=== PATIENT | male | born 1990 | race Two or more races ===

== ENCOUNTER 2020-02-22 15:25 | Observation (INO) ==
[2020-02-22 15:37] VITALS: BMI 24.8
[2020-02-22 18:18] LABS: BILIRUBIN,URINE NEGATIVE (NEGATIVE); BLOOD/HEMOGLOBIN,URINE NEGATIVE (NEGATIVE); GLUCOSE, URINE NEGATIVE (NEGATIVE); KETONES,URINE NEGATIVE (NEGATIVE); LEUKOCYTE ESTERASE ,URINE NEGATIVE (NEGATIVE); NITRITES,URINE NEGATIVE (NEGATIVE); PROTEIN,URINE 1+ (NEGATIVE); UROBILINOGEN,URINE NORMAL (NORMAL)
[2020-02-22 18:28] LABS: APPEARANCE,URINE SLIGHTLY HAZY (CLEAR); COLOR,URINE YELLOW (YELLOW)
[2020-02-22 18:29] LABS: BACTERIA,URINE NEGATIVE /HPF (NEGATIVE); RBC,URINE NONE SEEN /HPF (0-3); SQUAMOUS EPITHELIAL CELL,UR RARE /HPF (NEGATIVE)
--- NOTE | 2020-02-22 18:53 | DR.ABDMALE ---
HPI Time seen Time Seen by Provider: 02/22/20 18:51 PCP Primary Care Physician: JACKIE HPI comment HPI Comment: PATIENT IS 30YR OLD MALE IN ER WITH LLQ ABDOMINAL PAIN RADIATING TO LEFT GROIN AREA. OBVIOUS LEFT INGUINAL HERNIA THAT IS NOT REDUCING PRESENT. PAIN IS 7/10. NO FEVER OR DYSURIA. PAIN INCREASES WITH MOVEMENT AND IMPROVES LYING STILL. DENIES CONSTIPATION OR DIARRHEA. 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 Complaint Chief Complaint Doctors Comments: LLQ ABDOMINAL PAIN SINCE LAST NIGHT. Chief Complaint:: PT C/O LLQ PAIN. PT STATES HE HAS BEEN HAVING THE PAIN SINCE LAST NIGHT. COVID-19 Coronavirus risk:travel/contact w/high risk person: No Has patient experienced Coronavirus symptoms: No Reviewed Nurses Notes Review: Yes Mode of arrival Mode of Arrival: Ambulatory Timing Onset of Chief Complaint: 02/21/20 Came on: Suddenly Duration Duration: Constant Duration: Hours Location Location: LLQ Severity Severity: Moderate Quality Quality: Sharp Context Onset: Suddenly History of: None Modifying factors Worsening Factors: Exertion Improving Factors: Lying Still Associated signs and symptoms Associated Signs and Symptoms: Nausea PMH PMH Past Medical History: No Past Surgical History: Yes Surgical History: Appendectomy Family History History of Family Medical Conditions: No Social History Does any household member use tobacco: No Alcohol Use: Occasionally Do you use any recreational Drugs:: No Lives With: Friend Lives Where: Home Travel Risk Coronavirus risk:travel/contact w/high risk person: No Has patient experienced Coronavirus symptoms: No Infectious screening In the last 2 months have you had wt loss of >10#?: NO Have you had fever, night sweats or hemotysis?: No Have you traveled outside the country in the last 6 months?: No Isolation: Standard ROS Review of Systems Constitutional: No Symptoms Reported and See HPI; negative Fever, Weakness and Fatigue Eyes: No Symptoms Reported and See HPI; negative Blurred Vision and Diplopia ENTM: No Symptoms Reported and See HPI; negative Ear Pain, Nose Discharge, Nose Congestion and Throat Pain Respiratoy: No Symptoms Reported and See HPI; negative Moist Cough, Short of Breath and Wheezing Cardiovascular: No Symptoms Reported and See HPI; negative Chest Pain, Edema and Palpitations Gastrointestinal/Abdominal: See HPI, Abdominal Pain and Nausea; negative Constipation, Diarrhea and Vomiting Genitourinary: See HPI and Pain (LEFT GROIN PAIN.); negative Dysuria, Frequency and Hematuria Neurological: No Symptoms Reported and See HPI; negative Headache, Weakness and Dizziness Musculoskeletal: No Symptoms Reported and See HPI; negative Back Pain Integumentary: No Symptoms Reported and See HPI; negative Change in Color, Rash and Juandice Hematologic/Lymphatic: No Symptoms Reported and See HPI; negative Easy Bruising and Swollen Glands Endocrine: No Symptoms Reported and See HPI; negative Increased Thirst, Increased Urine and Decreased Appetite Psychiatric: No Symptoms Reported and See HPI All Other Systems: Reviewed and Negative PE Vital Signs Vital Signs: Temp Pulse Pulse Resp BP BP Pulse Ox 02/22/20 19:48 18 02/22/20 19:33 97.8 F 78 18 128/76 99 02/22/20 19:18 18 02/22/20 15:34 97.3 F L 80 20 136/89 99 General Limitations: No Limitations General Appearance: Alert and In No Apparent Distress Head Head Exam: Normal Inspection Eyes Eye exam: Normal Appearance and PERRL; negative Scleral Icterus and Conjunctival Injection ENT ENT Exam: Normal Exam, Normal Oropharynx, Normal External Ear Exam and TM's Normal Bilaterally Neck Neck Exam: Normal Inspection and Trachea Midline; negative Tenderness and Lymphadenopathy Chest Chest Inspection: Normal Inspection and Symmetric Chest Wall Rise; negative Tenderness Respiratory Respiratory Exam: Normal Lung Sounds Bilat; negative Accessory Muscle Use, Chest Wall Tenderness and Respiratory Distress Respiratory Exam: Bilateral: Clear to Auscultation Cardiovascular Cardiovascular Exam: Regular Rate, Normal Rhythm and Normal Heart Sounds; negat arlette Systolic Murmur and Diastolic Murmur Abdominal Exam Abdominal Exam: Normal Inspection, Normal Bowel Sounds, Soft, Tenderness and Hernia (LEFT INGUINAL HERNIA THAT IS NOT REDUCING.) Abdominal Tenderness: LLQ and Moderate Rectal Rectal Exam: Deferred Back Back Exam: Normal Inspection; negative (R) CVA Tenderness and (L) CVA Tenderness Extremeties Extremities Exam: Normal Inspection Exam: Male: Deferred Neurologic Neurological Exam: Alert, Oriented X3 and CN II-XII Intact; negative Motor Sensory Deficit Psychiatric Psychiatric Exam: Normal Affect and Normal Mood Skin Skin Exam: Warm, Dry, Intact and Normal Color MDM Differential Diagnosis Differential Diagnosis: Bowel Obstruction, Hernia (INCARCERATED LEFT INGUINAL HERNIA.), Urinary tract infection and Urolithiasis COURSE Treatment Treatment: SEE ORDERS. Consultation Consultation Comments: DISCUSSED PATIENT WITH DR. DIETRICH, IN ER SEING PATIENT. WILL ADMIT PATIENT. Education/Counseling Education/Counseling: Patient Educated On: Diagnosis ROR Labs Reviewed Laboratory Results Reviewed?: Yes Result Diagrams: 02/23/20 05:40 02/23/20 05:40 Laboratory: WBC 10.6 X10^3/uL (3.6-10.0) H 02/22/20 19:24 RBC 4.62 X10^6/uL (4.7-6.0) L 02/22/20 19:24 Hgb 13.9 g/dL (13.5-18.0) 02/22/20 19:24 Hct 40.3 % (42.0-54.0) L 02/22/20 19:24 MCV 87.1 fL (80.0-100.0) 02/22/20 19: MCH 30.1 pg (27.0-34.0) 02/22/20 19: MCHC 34.5 g/dL (33.0-35.0) 02/22/20: RDW 13.3 % (11.6-16.5) 02/22/20 19: Plt Count 284 X10^3/uL (150.0-450.0) 02/22/20 19:24 MPV 7.7 fL (7.4-11.0) 02/22/20 19:24 Neut % (Auto) 49.8 % (42.0-75.0) 02/22/20 19: Lymph % (Auto) 37.6 % (21.0-51.0) 02/22/20: [place] % (Auto) 9.1 % (0.0-13.0) 02/22/20 19: Eos % (Auto) 1.3 % (0.9-2.9) 02/22/20 19:24 Baso % (Auto) 2.2 % (0.2-1.0) H 02/22/20 19:24 Neut # (Auto) 5.3 x10^3/uL (2.2-4.8) H 02/22/20 19:24 Lymph # (Auto) 4.0 X10^3/uL (1.3-2.9) H 02/22/20 19:24 [place] # (Auto) 1.0 x10^3/uL (0.3-0.8) H 02/22/20 19:24 Eos # (Auto) 0.1 x10^3/uL (0.0-0.2) 02/22/20 19:24 Baso # (Auto) 0.2 X10^3/uL (0.0-0.1) H 02/22/20 19:24 Absolute Nucleated RBC 0.1 /100WBC 02/22/20 19:24 Sodium 139 mmol/L (136-145) 02/22/20 19:24 Corrected Sodium TNP 02/22/20 19:24 Potassium 3.6 mmol/L (3.5-5.1) 02/22/20 19:24 Chloride 103 mmol/L (98-107) 02/22/20 19:24 Carbon Dioxide 30.7 mmol/L (21-32) 02/22/20 19:24 BUN 16 mg/dL (7-18) 02/22/20 19:24 Creatinine 1.00 mg/dL (0.70-1.30) 02/22/20 19:24 Est GFR (MDRD) Af Amer > 60 (>60) 02/22/20 19:24 Est GFR (MDRD) Non-Af > 60 (>60) 02/22/20 19:24 Glucose 95 mg/dL (65-99) 02/22/20 19:24 Calcium 8.4 mg/dL (8.5-10.1) L 02/22/20 19:24 Corrected Calcium TNP 02/22/20 19:24 Total Bilirubin 0.60 mg/dL (0.2-1.0) 02/22/20 19:24 AST 24 Units/L (15-37) 02/22/20 19:24 ALT 29 Units/L (12-78) 02/22/20 19:24 Alkaline Phosphatase 51 Units/L (46-116) 02/22/20 19:24 Total Protein 7.4 g/dL (6.4-8.2) 02/22/20 19:24 Albumin 4.0 g/dL (3.4-5.0) 02/22/20 19:24 Globulin 3.4 g/dL (2.5-4.5) 02/22/20 19:24 Albumin/Globulin Ratio 1.2 Ratio (1.1-2.1) 02/22/20 19:24 Specimen Type Clean catch urine 02/22/20 18:12 Urine Color Yellow (YELLOW) 02/22/20 18:12 Urine Appearance Slightly hazy (CLEAR) 02/22/20 18:12 Urine pH 6.0 (5.0 - 8.0) 02/22/20 18:12 Ur Specific [place] 1.025 (1.000-1.030) 02/22/20 18:12 Urine Protein 1+ (NEGATIVE) 02/22/20 18:12 Urine Glucose (UA) Negative (NEGATIVE) 02/22/20 18:12 Urine Ketones Negative (NEGATIVE) 02/22/20 18:12 Urine Occult Blood Negative (NEGATIVE) 02/22/20 18:12 Urine Nitrite Negative (NEGATIVE) 02/22/20 18:12 Urine Bilirubin Negative (NEGATIVE) 02/22/20 18:12 Urine Urobilinogen Normal (NORMAL) 02/22/20 18:12 Ur Leukocyte Esterase Negative (NEGATIVE) 02/22/20 18:12 Urine RBC None seen /HPF (0-3) 02/22/20 18:12 Urine WBC 0-2 /HPF (0-5) 02/22/20 18:12 Ur Squamous Epith Cells Rare /HPF (NEGATIVE) 02/22/20 18:12 Urine Bacteria Negative /HPF (NEGATIVE) 02/22/20 18:12 Ur Culture Indicated? No/not indicated 02/22/20 18:12 Opioid Opioid Risk Tool Age (Pee box if 16-45): No History of Preadolescent Sexual Abuse: No Total: 0 Total Score Risk Category: Low Risk Copyright: Lev [place] predicting aberrant behaviors Diagnosis Discharge Problem: Incarcerated left inguinal hernia, Abdominal pain, LLQ Instructions Instructions: Hernia, Adult, [id number] Open Hernia Repair, Adult, Care After, [id number] Laparoscopic Inguinal Hernia Repair, Adult, Care After Forms: Excuse From Work or School Precautions for COVID19 Patient Portal Social Distancing
[2020-02-22] MEDS ORDERED: NS 1000 ML 1,000 ML ONE (18:59)
[2020-02-22] MEDS ORDERED: NS 1000 ML 1,000 ML IV ONE (19:07)
[2020-02-22] MEDS ORDERED: DILAUDID INJ ONE (19:16)
[2020-02-22] MEDS ORDERED: DILAUDID INJ IVP ONE (19:18)
[2020-02-22 19:31] LABS: BASOPHILS # (AUTO) 0.2 X10^3/uL (0.0-0.1); BASOPHILS % (AUTO) 2.2 % (0.2-1.0); EOSINOPHILS # (AUTO) 0.1 x10^3/uL (0.0-0.2); EOSINOPHILS % (AUTO) 1.3 % (0.9-2.9); HEMATOCRIT 40.3 % (42.0-54.0); HEMOGLOBIN 13.9 g/dL (13.5-18.0); LYMPHOCYTES % (AUTO) 37.6 % (21.0-51.0); MEAN CORPUSCULAR HEMOGLOBIN 30.1 pg (27.0-34.0); MEAN CORPUSCULAR HGB CONC 34.5 g/dL (33.0-35.0); MEAN CORPUSCULAR VOLUME 87.1 fL (80.0-100.0); MEAN PLATELET VOLUME 7.7 fL (7.4-11.0); MONOCYTES % (AUTO) 9.1 % (0.0-13.0); NEUTROPHILS # (AUTO) 5.3 x10^3/uL (2.2-4.8); NEUTROPHILS % (AUTO) 49.8 % (42.0-75.0); PLATELET COUNT 284 X10^3/uL (150.0-450.0); RED BLOOD COUNT 4.62 X10^6/uL (4.7-6.0); RED CELL DISTRIBUTION WIDTH 13.3 % (11.6-16.5); WHITE BLOOD COUNT 10.6 X10^3/uL (3.6-10.0)
[2020-02-22 19:41] LABS: ALANINE AMINOTRANSFERASE 29 Units/L (12-78); ALKALINE PHOSPHATASE 51 Units/L (46-116); ASPARTATE AMINO TRANSFERASE 24 Units/L (15-37); BLOOD UREA NITROGEN 16 mg/dL (7-18); CALCIUM 8.4 mg/dL (8.5-10.1); CARBON DIOXIDE 30.7 mmol/L (21-32); CHLORIDE 103 mmol/L (98-107); SODIUM 139 mmol/L (136-145); TOTAL PROTEIN 7.4 g/dL (6.4-8.2); eGFR NON BLACK RACES > 60 (>60)
--- NOTE | 2020-02-22 19:55 | RAD ---
HISTORYR/O SBO. LLQ ABD PAIN NO HX. SX APPENDIXChest and abdominal pain.EXAM: ACUTE ABDOMINAL SERIESComparison: None available.Findings:The trachea is midline. [The cardiac silhouette is unremarkable]. The lungs [are clear without focal infiltrate or effusion]. The bony thorax [is unremarkable].Flat plate and upright evaluation of the abdomen demonstrates [a nonspecific and nonobstructive bowel gas pattern]. [No free peritoneal air is seen]. [No pathological soft tissue abdominal mass effect or focal calcification can be observed]. The bony structures are grossly intact. There is a moderate amount of colonic stool.IMPRESSION:1. No acute cardiopulmonary disease.2. No evidence for acute abdominal pathology.3. Moderate amount of colonic stool.Electronically signed by: YOJANA PEPPER III (Feb 22, 2020 19:54:09)
[2020-02-22] MEDS ORDERED: ZOFRAN INJ 4 MG VIAL IVP PRN (20:37)
[2020-02-22] MEDS ORDERED: DILAUDID INJ IVP PRN (22:39)
[2020-02-22] MEDS: NS 1000 ML 1,000 ML IV SCH (23:22)
[2020-02-23] MEDS ORDERED: ZOFRAN INJ 4 MG VIAL IVP PRN ×2 (02:34→09:31)
[2020-02-23] MEDS ORDERED: ZOFRAN INJ 4 MG VIAL ONE ×2 (02:38→09:45)
[2020-02-23] MEDS: NS 1000 ML 1,000 ML IV SCH ×6 (06:14→22:32)
[2020-02-23 06:28] LABS: ALANINE AMINOTRANSFERASE 27 Units/L (12-78); ALBUMIN 3.7 g/dL (3.4-5.0); ALKALINE PHOSPHATASE 48 Units/L (46-116); ASPARTATE AMINO TRANSFERASE 23 Units/L (15-37); BLOOD UREA NITROGEN 19 mg/dL (7-18); CALCIUM 8.3 mg/dL (8.5-10.1); CARBON DIOXIDE 27.9 mmol/L (21-32); CHLORIDE 105 mmol/L (98-107); CREATININE 0.85 mg/dL (0.70-1.30); SODIUM 140 mmol/L (136-145); eGFR NON BLACK RACES > 60 (>60)
[2020-02-23 06:48] LABS: BASOPHILS # (AUTO) 0.1 X10^3/uL (0.0-0.1); BASOPHILS % (AUTO) 0.5 % (0.2-1.0); EOSINOPHILS # (AUTO) 0.1 x10^3/uL (0.0-0.2); EOSINOPHILS % (AUTO) 0.5 % (0.9-2.9); LYMPHOCYTES # (AUTO) 2.4 X10^3/uL (1.3-2.9); MEAN CORPUSCULAR HEMOGLOBIN 29.3 pg (27.0-34.0); MEAN CORPUSCULAR HGB CONC 33.4 g/dL (33.0-35.0); MEAN CORPUSCULAR VOLUME 87.6 fL (80.0-100.0); MEAN PLATELET VOLUME 8.3 fL (7.4-11.0); MONOCYTES # (AUTO) 0.7 x10^3/uL (0.3-0.8); MONOCYTES % (AUTO) 7.4 % (0.0-13.0); NEUTROPHILS # (AUTO) 6.7 x10^3/uL (2.2-4.8); NEUTROPHILS % (AUTO) 67.6 % (42.0-75.0); PLATELET COUNT 273 X10^3/uL (150.0-450.0); RED BLOOD COUNT 4.45 X10^6/uL (4.7-6.0); RED CELL DISTRIBUTION WIDTH 13.2 % (11.6-16.5); WHITE BLOOD COUNT 9.9 X10^3/uL (3.6-10.0)
[2020-02-23] MEDS ORDERED: DILAUDID INJ IVP STA (07:58)
--- NOTE | 2020-02-23 08:37 | DR.PROGNOT ---
Hospital Progress Notes - Progress Note for Day of: Progress Note Date: 02/23/20 - Chief Complaint Chief Complaint: still c/o pain Lt groin with incarcerated hernia. - Past Medical Family Social History Past Med/Fam/Surg Hx: No changes since H&P Allergies: Allergies No Known Drug Allergies Allergy (Verified 02/22/20 15:33) - Review Of Systems ROS: No change since H&P - Vital Signs Vital Signs: Temperature 97.7 F Pulse Rate [Left Brachial] 78 Pulse Rate 80 Respiratory Rate 18 Blood Pressure [Left Arm] 120/66 Blood Pressure 136/89 O2 Sat by Pulse Oximetry 97 - Physical Exam Oriented: Normal Eyes: Normal Ear: Normal Nose: Normal Throat: Normal Respiratory: Normal Cardiovascular: Normal : Normal GI:Auscultation: Normal GI:Palpation: Normal GI: Tenderness: LLQ (incarcerated Lt inguinal hernia .) Speech Pattern: Clear, Appropriate - Laboratory and Diagnostics Result Diagrams: 02/23/20 05:40 02/23/20 05:40 Labs: Laboratory WBC 9.9 X10^3/uL (3.6-10.0) 02/23/20 05:40 RBC 4.45 X10^6/uL (4.7-6.0) L 02/23/20 05:40 Hgb 13.0 g/dL (13.5-18.0) L 02/23/20 05:40 Hct 39.0 % (42.0-54.0) L 02/23/20 05:40 MCV 87.6 fL (80.0-100.0) 02/23/20 05:40 MCH 29.3 pg (27.0-34.0) 02/23/20 05:40 MCHC 33.4 g/dL (33.0-35.0) 02/23/20 05:40 RDW 13.2 % (11.6-16.5) 02/23/20 05:40 Plt Count 273 X10^3/uL (150.0-450.0) 02/23/20 05:40 MPV 8.3 fL (7.4-11.0) 02/23/20 05:40 Neut % (Auto) 67.6 % (42.0-75.0) 02/23/20 05:40 Lymph % (Auto) 24.0 % (21.0-51.0) 02/23/20 05:40 [place] % (Auto) 7.4 % (0.0-13.0) 02/23/20 05:40 Eos % (Auto) 0.5 % (0.9-2.9) L 02/23/20 05:40 Baso % (Auto) 0.5 % (0.2-1.0) 02/23/20 05:40 Neut # (Auto) 6.7 x10^3/uL (2.2-4.8) H 02/23/20 05:40 Lymph # (Auto) 2.4 X10^3/uL (1.3-2.9) 02/23/20 05:40 [place] # (Auto) 0.7 x10^3/uL (0.3-0.8) 02/23/20 05:40 Eos # (Auto) 0.1 x10^3/uL (0.0-0.2) 02/23/20 05:40 Baso # (Auto) 0.1 X10^3/uL (0.0-0.1) 02/23/20 05:40 Absolute Nucleated RBC 0.0 /100WBC 02/23/20 05:40 Sodium 140 mmol/L (136-145) 02/23/20 05:40 Corrected Sodium TNP 02/23/20 05:40 Potassium 4.3 mmol/L (3.5-5.1) 02/23/20 05:40 Chloride 105 mmol/L (98-107) 02/23/20 05:40 Carbon Dioxide 27.9 mmol/L (21-32) 02/23/20 05:40 BUN 19 mg/dL (7-18) H 02/23/20 05:40 Creatinine 0.85 mg/dL (0.70-1.30) 02/23/20 05:40 Est GFR (MDRD) Af Amer > 60 (>60) 02/23/20 05:40 Est GFR (MDRD) Non-Af > 60 (>60) 02/23/20 05:40 Glucose 102 mg/dL (65-99) H 02/23/20 05:40 Calcium 8.3 mg/dL (8.5-10.1) L 02/23/20 05:40 Corrected Calcium TNP 02/23/20 05:40 Total Bilirubin 0.50 mg/dL (0.2-1.0) 02/23/20 05:40 AST 23 Units/L (15-37) 02/23/20 05:40 ALT 27 Units/L (12-78) 02/23/20 05:40 Alkaline Phosphatase 48 Units/L (46-116) 02/23/20 05:40 Total Protein 7.0 g/dL (6.4-8.2) 02/23/20 05:40 Albumin 3.7 g/dL (3.4-5.0) 02/23/20 05:40 Globulin 3.3 g/dL (2.5-4.5) 02/23/20 05:40 Albumin/Globulin Ratio 1.1 Ratio (1.1-2.1) 02/23/20 05:40 Specimen Type Clean catch urine 02/22/20 18:12 Urine Color Yellow (YELLOW) 02/22/20 18:12 Urine Appearance Slightly hazy (CLEAR) 02/22/20 18:12 Urine pH 6.0 (5.0 - 8.0) 02/22/20 18:12 Ur Specific [place] 1.025 (1.000-1.030) 02/22/20 18:12 Urine Protein 1+ (NEGATIVE) 02/22/20 18:12 Urine Glucose (UA) Negative (NEGATIVE) 02/22/20 18:12 Urine Ketones Negative (NEGATIVE) 02/22/20 18:12 Urine Occult Blood Negative (NEGATIVE) 02/22/20 18:12 Urine Nitrite Negative (NEGATIVE) 02/22/20 18:12 Urine Bilirubin Negative (NEGATIVE) 02/22/20 18:12 Urine Urobilinogen Normal (NORMAL) 02/22/20 18:12 Ur Leukocyte Esterase Negative (NEGATIVE) 02/22/20 18:12 Urine RBC None seen /HPF (0-3) 02/22/20 18:12 Urine WBC 0-2 /HPF (0-5) 02/22/20 18:12 Ur Squamous Epith Cells Rare /HPF (NEGATIVE) 02/22/20 18:12 Urine Bacteria Negative /HPF (NEGATIVE) 02/22/20 18:12 Ur Culture Indicated? No/not indicated 02/22/20 18:12 - Assessment and Plan 1: incarcerated Lt inguinal hernia with early bowel obstruction . for surgery this AM .
[2020-02-23] MEDS ORDERED: FENTANYL INJ 250 mcg ONE (09:10)
[2020-02-23] MEDS ORDERED: XYLOCAINE 1 % (PLAIN) ONE (09:15)
[2020-02-23] MEDS ORDERED: PHENERGAN INJ 25 MG IM PRN (09:31)
[2020-02-23] MEDS ORDERED: REGLAN INJ 10 MG VIAL IVP PRN (09:31)
[2020-02-23] MEDS ORDERED: BENADRYL INJ 50 MG VIAL IVP PRN (09:31)
[2020-02-23] MEDS ORDERED: DILAUDID INJ IVP PRN (09:31)
[2020-02-23] MEDS ORDERED: NS 100 ML IV 100 ML IV ONE (09:32)
[2020-02-23] MEDS ORDERED: ANCEF VIAL 1 GRAM ONE (09:32)
[2020-02-23] MEDS ORDERED: LR 1000 ML IV 1,000 ML IV ONE (09:36)
[2020-02-23] MEDS ORDERED: DIPRIVAN VIAL ONE (09:45)
[2020-02-23] MEDS ORDERED: ROBINUL ONE (09:45)
[2020-02-23] MEDS ORDERED: NORCURON INJ 10 MG VIAL ONE (09:45)
[2020-02-23] MEDS ORDERED: QUELICIN (OR ANECTINE) ONE (09:45)
[2020-02-23] MEDS ORDERED: VERSED ONE (09:45)
[2020-02-23] MEDS ORDERED: NEOSTIGMINE INJ ONE (09:45)
[2020-02-23] MEDS ORDERED: SUPRANE ONE (09:45)
[2020-02-23] MEDS ORDERED: MARCAINE 0.5% ONE (10:48)
[2020-02-23] MEDS: DILAUDID INJ IVP PRN (22:33)
[2020-02-24] MEDS: NS 1000 ML 1,000 ML IV SCH ×2 (04:48)
[2020-02-24 09:57] VITALS: BP 125/59
[2020-02-24] MEDS: DILAUDID INJ IVP PRN (10:10)
== END 2020-02-24 11:05 | disposition home or self-care (01) ==
LOC: ER 15:33 → MED/SURG 15:33
PROVIDERS: ADMIT Surgery; ATTEND Surgery
DX: K40.30 Unilateral inguinal hernia, with obstruction, without gangrene, not specified as recurrent; R10.32 Left lower quadrant pain